=== PATIENT | male | born 1955 | race Caucasian/White ===

== ENCOUNTER 2022-04-23 13:18 | Emergency (ER) | payer MEDICARE, SELFPAY ==
[2022-04-23 13:40] VITALS: BP 155/86; PULSE 82; RESP 16; TEMP 37.2; O2SAT 99
--- NOTE | 2022-04-23 14:29 | ED.EAR ---
HPI - Ear Problem General Chief complaint: Ear Stated complaint: excessive ear wax left ear Source: patient Mode of arrival: ambulatory Limitations: no limitations History of Present Illness HPI Narrative: Patient presents for evaluation of decreased hearing in the left ear for the last week. He has chronic hearing impairments and wears hearing aids bilaterally. He saw his director of speech pathology last week who told him that he had a cerumen impaction. It was recommended he call his PCP. He contacted his PCP several times with no returned correspondence per his reports. He states he purchased debrox and used it with some mild improvement in his hearing. No tinnitus or drainage from the ears. He has a hx of tympanoplasty on several occasions in the past. He also has history of cholesteatoma. No additional complaints or concerns. Related Data Home Medications Medication Instructions Recorded Confirmed prednisolone acetate 1 % eye 1 drp RIGHT EYE QID 04/23/22 04/23/22 drops,suspension Allergies Allergy/AdvReac Type Severity Reaction Status Date / Time No Known Allergies Allergy Verified 04/23/22 13:47 Review of Systems Review of Systems: CONSTITUTIONAL: Denies fever, chills, or sweats. EYES: Denies visual changes, redness, or discharge. ENT: Reports decreased hearing in left ear. Denies rhinorrhea, congestion, sore throat, or otalgia. CARDIOVASCULAR: Denies chest pain, palpitations, or edema. RESPIRATORY: Denies cough or dyspnea. GASTROINTESTINAL: Denies abdominal pain, nausea, vomiting, or diarrhea. GENITOURINARY: Denies dysuria or hematuria. SKIN: Denies rash or itching. MUSCULOSKELETAL: Denies back pain, joint pain, or myalgia. NEUROLOGIC: Denies headache, numbness, dizziness, or weakness. PSYCHIATRIC: Denies anxiety or depression. [facility] Past Medical History Medical History Cholesteatoma Surgical History Surgical History History of tympanoplasty Family History Family History Father Family history of Alzheimer's disease Social History Social History Smoking status: Never smoker Alcohol intake: current Substance use: never Living arrangements: with family Gender identity (if verbalized by the patient): Male Sexual Orientation (if Verbalized by the Patient): Straight or Heterosexual Spiritual care concerns: No Exam Narrative: GENERAL: Well-appearing, well-nourished, and in no acute distress. HEAD: Normocephalic, atraumatic. EYES: PERRLA and EOMI. ENT: Nares clear, no rhinorrhea or epistaxis. Mucous membranes moist. Oropharynx without tonsillar hypertrophy exudate or other lesions. There is white exudate noted in left ear canal. NECK: Supple. No adenopathy or masses. No carotid bruits or JVD CHEST: Clear to auscultation. No respiratory distress. No wheezes rales or rhonchi HEART: Regular rate and rhythm. No murmur heard. Normal peripheral pulses. ABDOMEN: Soft, nontender, nondistended, normal active bowel sounds. EXTREMITIES: Normal range of motion. No edema. SKIN: Warm, dry, no rash. NEURO: No focal deficits. Alert and oriented x3. PSYCH: Normal mood and affect. Course Course Emergency Course: This is a 66-year-old male who presented for evaluation of a cerumen impaction. I attempted to irrigate his ear with hydrogen peroxide and water. Very little cerumen/exudate was removed. I attempted to remove with a curette, unsuccessfully. There is a scant amount of bleeding noted. Retained product is very hard in consistency and I am concerned that additional attempts on my part may cause further bleeding. There appears to be approximately 40% obstruction to TM. I advised he should continue to use debrox at home and follow up with ENT to see if they ma
== END 2022-04-23 14:28 | disposition home or self-care (01) ==
PROVIDERS: Emergency Provider Nurse Practitioner; PCP Family Medicine
DX: H61.22 Impacted cerumen, left ear (principal)
CPT/HCPCS: 69209; 99213; G0463